=== PATIENT | female | born 1995 | race Caucasian/White ===

== ENCOUNTER 2019-12-04 19:37 | Emergency (ER) | payer SELFPAY ==
[~2019-12-04] VITALS: Ht 167.6 cm; Wt 72.6 kg
[~2019-12-04 19:37] MED LIST: AMOX500 PO; AZIT250 PO; BENZ100A PO; CLIN300 PO; CODACE30 PO; Cheratussin AC118 ML PO; Esgic Tablet1 EACH PO; Flonase 0.05% N16 GM; HIBICLENS120 ML EXT; IBUP400 PO; ONDA4ODT MM; RXCODACET PO; Sudogest30 MG PO
== END 2019-12-04 20:39 | disposition left against medical advice (07) ==
LOC: ER 19:37
DX: G43.909 Migraine, unspecified, not intractable, without status migrainosus (principal); Z53.21 Procedure and treatment not carried out due to patient leaving prior to being seen by health care provider
CPT/HCPCS: 99282